=== PATIENT | female | born 1965 | race Caucasian/White ===

== ENCOUNTER → 2020-07-02 | Outpatient (CLI) | payer BC ==
[2020-07-02 09:24] LABS: BASO # 0.02 (0.02-0.10); EOS # 0.14 (0.04-0.40); EOS % 3.2 % (1.0-5.0); HEMOGLOBIN 14.5 g/dL (12.5-16.0); LYMPH# 1.28 (1.50-4.00); MEAN CELL VOLUME 92 fl (78-100); MEAN CORPUSCULAR HEMOGLOBIN 30 pg (27-31); MEAN CORPUSCULAR HGB CONC 33 g/dL (33-37); MEAN PLATELET VOLUME 8.6 fl (7.4-10.4); NEU # 2.57 (1.40-6.50); PLATELET COUNT 295 K/mm3 (130-400); RED BLOOD COUNT 4.81 M/mm3 (4.10-5.30); RED CELL DISTRIBUTION WIDTH 12.6 % (11.5-14.5); WHITE BLOOD COUNT 4.4 K/mm3 (4.8-10.8)
[2020-07-02 09:39] LABS: ALBUMIN 4.3 g/dL (3.5-5.0)
[2020-07-02 09:40] LABS: CALCIUM 9.7 mg/dL (8.3-10.5)
[2020-07-02 09:41] LABS: TOTAL PROTEIN 7.1 g/dL (6.4-8.3)
[2020-07-02 09:43] LABS: TOTAL BILIRUBIN 0.6 mg/dL (0.2-1.2)
== END ==
LOC: LAB 09:00
PROVIDERS: Physician Assistant
DX: Z00.00 Encounter for general adult medical examination without abnormal findings (principal); Z13.1 Encounter for screening for diabetes mellitus

== ENCOUNTER → 2021-02-24 | Outpatient (CLI) | payer BC | LOC: LAB 18:27 | DX: R30.9 Painful micturition, unspecified (principal) ==

== ENCOUNTER → 2021-07-09 | Outpatient (CLI) | payer BC ==
[2021-07-09 10:16] LABS: BASO # 0.03 K/mm3 (0.02-0.10); EOS # 0.17 K/mm3 (0.04-0.40); EOS % 4.4 % (1.0-5.0); HEMATOCRIT 39.3 % (37.0-47.0); HEMOGLOBIN 13.2 g/dL (12.5-16.0); MEAN CELL VOLUME 90 fl (78-100); MEAN CORPUSCULAR HEMOGLOBIN 30 pg (27-31); MEAN CORPUSCULAR HGB CONC 34 g/dL (33-37); MEAN PLATELET VOLUME 8.8 fl (7.4-10.4); NEU # 1.82 K/mm3 (1.40-6.50); PLATELET COUNT 283 K/mm3 (130-400); RED BLOOD COUNT 4.35 M/mm3 (4.10-5.30); RED CELL DISTRIBUTION WIDTH 12.7 % (11.5-14.5); WHITE BLOOD COUNT 3.8 K/mm3 (4.8-10.8)
[2021-07-09 10:22] LABS: ALBUMIN 4.2 g/dL (3.5-5.0); POTASSIUM 4.4 mmol/L (3.5-5.1)
[2021-07-09 10:23] LABS: CALCIUM 9.5 mg/dL (8.3-10.5)
[2021-07-09 10:24] LABS: TOTAL PROTEIN 6.9 g/dL (6.4-8.3)
[2021-07-09 10:26] LABS: TOTAL BILIRUBIN 0.4 mg/dL (0.2-1.2)
== END ==
LOC: LAB 09:58
PROVIDERS: Physician Assistant
DX: Z00.00 Encounter for general adult medical examination without abnormal findings (principal); Z13.1 Encounter for screening for diabetes mellitus; Z13.29 Encounter for screening for other suspected endocrine disorder

== ENCOUNTER → 2021-09-01 | Outpatient (CLI) | payer BC | LOC: RAD 12:49 → MAMMO 12:49 | DX: Z13.820 Encounter for screening for osteoporosis (principal); M85.80 Other specified disorders of bone density and structure, unspecified site ==

== ENCOUNTER → 2023-07-21 | Outpatient (CLI) | payer BC ==
[2023-07-21 09:31] LABS: BASO # 0.04 K/mm3 (0.02-0.10); EOS # 0.16 K/mm3 (0.04-0.40); HEMATOCRIT 38.8 % (37.0-47.0); HEMOGLOBIN 12.8 g/dL (12.5-16.0); LYMPH# 1.46 K/mm3 (1.50-4.00); MEAN CELL VOLUME 92 fl (78-100); MEAN CORPUSCULAR HEMOGLOBIN 30 pg (27-31); MEAN CORPUSCULAR HGB CONC 33 g/dL (33-37); MEAN PLATELET VOLUME 8.6 fl (7.4-10.4); MONO # 0.35 K/mm3 (0.20-0.80); NEU # 1.98 K/mm3 (1.40-6.50); PLATELET COUNT 291 K/mm3 (130-400); RED BLOOD COUNT 4.23 M/mm3 (4.10-5.30); RED CELL DISTRIBUTION WIDTH 12.9 % (11.5-14.5)
[2023-07-21 09:39] LABS: ALBUMIN 4.3 g/dL (3.5-5.0)
[2023-07-21 09:40] LABS: CALCIUM 9.7 mg/dL (8.3-10.5)
[2023-07-21 09:41] LABS: TOTAL PROTEIN 6.9 g/dL (6.4-8.3)
[2023-07-21 09:43] LABS: TOTAL BILIRUBIN 0.5 mg/dL (0.2-1.2)
== END ==
LOC: LAB 09:11
PROVIDERS: Physician Assistant
DX: E78.5 Hyperlipidemia, unspecified (principal); K90.9 Intestinal malabsorption, unspecified

== ENCOUNTER → 2023-08-29 | Day surgery (SDC) | payer BC ==
[~2023-08-29] MED LIST: MACROBID 1100 MG/CAP PO; MULTIVITAMIN1 EACH PO; PROBIOTIC1 EAC1 PO; SINGULAIR 110 MG/TAB PO; VITAMIN C PO; VITAMIN D PO; VYVANSE30 MG PO; [UNRECOGNIZED DRUG - OTHER]
== END | disposition home or self-care (01) ==
LOC: MSO 09:27
DX: Z12.11 Encounter for screening for malignant neoplasm of colon (principal)
CPT/HCPCS: 00812; J2704; J7120

== ENCOUNTER 2023-09-20 18:12 | Outpatient (RCR) | payer BC ==
[2023-09-09 11:12] VITALS: BP 102/67
[2023-09-13 10:57] VITALS: BP 125/73
[~2023-09-20] VITALS: Ht 154.9 cm; Wt 55.5 kg
[2023-09-20 18:34] VITALS: BP 91/56
== END 2023-09-27 09:50 | disposition home or self-care (01) ==
LOC: AMSURD 18:12
DX: Z29.14 Encounter for prophylactic rabies immune globulin (principal)